=== PATIENT | female | born 1995 | race Caucasian/White ===

== ENCOUNTER → 2016-06-12 | Outpatient (CLI) | payer OTHER ==
--- NOTE | 2016-06-13 13:30 | US ---
EXAMINATION TYPE: US OB >= 14 wk fetus DATE OF EXAM: 06/12/2016 4:59 PM COMPARISON: None CLINICAL HISTORY: O36.63X0 Large for dates TECHNIQUE: GESTATIONAL AGE / DATING Physician Established: (35 weeks/0 days) EDC: 07/17/2016 Dates by LMP: (35 weeks/0 days) EDC: 07/17/2016 Dates by First Scan: (35 weeks/0 days) EDC: 07/17/2016 Dates by Current Scan: (35 weeks/3 days) EDC: 07/14/2016 SURVEY IUP: Single PLACENTA: Posterior PREVIA: No Previa STUART: 14.4 cm Normal CERVICAL LENGTH (transabdominal: norm > 3.0cm): 3.7 cm BIOMETRY PRESENTATION: Vertex BPD: 8.8 cm 35 weeks / 5 days HC: 31.7 cm 35 weeks / 5 days AC: 31.8 cm 35 weeks / 5 days FL: 7.0 cm 36 weeks / 0 days ESTIMATED WEIGHT IN GRAMS: 2775 grams ESTIMATED WEIGHT IN LBS/OZS: 6 lbs. 2 oz. WEIGHT PERCENTAGE BASED ON ESTABLISHED DATES: 70.7% HC/AC: 1.0 Normal FL/AC: 22.1 Normal HEART RATE: 134 bpm RHYTHM: Normal TECHNOLOGIST IMPRESSION: growth according to dates IMPRESSION: 1. Single intrauterine gestation estimated at 35 weeks 3 days gestation. Cardiac activity measures 13 4 bpm. Estimated date of confinement is calculated to be 07/14/2016 based on current measurements.
== END | disposition home or self-care (01) ==
LOC: RADUSWWP 16:08
PROVIDERS: ATTEND Obstetrics & Gynecology
DX: O36.63X0 Maternal care for excessive fetal growth, third trimester, not applicable or unspecified (principal); Z3A.35 35 weeks gestation of pregnancy
CPT/HCPCS: 76805

== ENCOUNTER 2016-06-25 10:43 | Outpatient (CLI) | payer OTHER | END 2016-06-25 11:19 | disposition home or self-care (01) | LOC: FBPOP 10:43 | PROVIDERS: ATTEND Obstetrics & Gynecology | DX: O99.89 Other specified diseases and conditions complicating pregnancy, childbirth and the puerperium (principal); M32.9 Systemic lupus erythematosus, unspecified; Z3A.38 38 weeks gestation of pregnancy | CPT/HCPCS: 96372; G0463; 99213 ==

== ENCOUNTER 2016-06-28 14:15 | Outpatient (CLI) | payer OTHER ==
--- NOTE | 2016-06-28 17:28 | P.PN ---
Progress Note - Text Izzy is seen and evaluated in triage. Her NST is reactive and she is overall feeling well. We had a lengthy discussion on her past medical history which includes rheumatoid arthritis and lupus. We discussed these her high risk conditions that require closer monitoring as she is been negligent getting all of her NSTs. She did see high risk and this was all explained her at the beginning of the . She was supposed to be taking aspirin has not been. On exam today she was dilated to 1 cm 70% effaced cervix was otherwise firm and the baby was high. I do not feel present part therefore ultrasound was done and verifies breech presentation at this time. Grossly amniotic fluid volume is normal but a full ultrasound for this is pending. After lengthy discussion with the patient on treatment plan we did discuss the preference of getting her delivered prior to her due date due to her increased risk of blood clots that could affect both her and were the placenta and baby. She seems to now have a better understanding of what our concerns are. She will have a nonstress test on Sunday. We'll plan to schedule a section for breech presentation on Sunday or Sunday of next week and do an evaluation prior to that verified that is still breech. Should the baby turn we'll plan to induce the patient instead. All these questions are answered for her and again was made very clear to her what her risks are should she have a problem moving forward with her lupus in the including hypertensive issues as well as blood clot issues the resulting in DVT, pulmonary embolism, or .
--- NOTE | 2016-06-28 17:54 | US ---
EXAMINATION TYPE: US OB >= 14 wk fetus DATE OF EXAM: 06/28/2016 5:44 PM COMPARISON: Prior in PACS CLINICAL HISTORY: Estimated weight and position, and STUART TECHNIQUE: Transabdominal (TA) GESTATIONAL AGE / DATING Physician Established: (37 weeks/2 days) EDC: 07/17/2016 Dates by LMP: : (37 weeks/2 days) EDC: 07/17/2016 Dates by First Scan: (37 weeks/2 days) EDC: 07/17/2016 Dates by Current Scan: (36 weeks/4 days) EDC: 07/22/2016 SURVEY IUP: Single PLACENTA: Posterior PREVIA: No Previa STUART: 11.1 cm Normal CERVICAL LENGTH (transabdominal: norm > 3.0cm): 3.5 cm BIOMETRY PRESENTATION: Breech LIE: Longitudinal BPD: 9.0 cm 36 weeks / 4 days HC: 32.8 cm 37 weeks / 2 days AC: 32.9 cm 36 weeks / 6 days FL: 7.1 cm 36 weeks / 5 days ESTIMATED WEIGHT IN GRAMS: 3038 grams ESTIMATED WEIGHT IN LBS/OZS: 6 lbs. 11 oz. WEIGHT PERCENTAGE BASED ON ESTABLISHED DATES: 44.9% HC/AC: 1.0 Normal FL/AC: 21.76 Normal HEART RATE: 128 bpm RHYTHM: Normal MATERNAL WALL MEASUREMENT: cm from skin to anterior uterine wall (if exam limited due to body habitus ). TECHNOLOGIST IMPRESSION: Viable IUP, measurements congruent with dates IMPRESSION: There is satisfactory growth compared to the first exam of 12/24/2015. I see no complication pro cess. There is a breech lie.
== END 2016-06-28 17:37 | disposition home or self-care (01) ==
LOC: FBPOP 14:15
PROVIDERS: ATTEND Obstetrics & Gynecology
DX: O99.89 Other specified diseases and conditions complicating pregnancy, childbirth and the puerperium (principal); M32.9 Systemic lupus erythematosus, unspecified; M06.9 Rheumatoid arthritis, unspecified; O32.1XX0 Maternal care for breech presentation, not applicable or unspecified; Z3A.37 37 weeks gestation of pregnancy
CPT/HCPCS: 59025; 76805; G0463; 99213

== ENCOUNTER 2016-07-05 06:37 | Inpatient (IN) | payer OTHER ==
[2016-07-05] MEDS ORDERED: METHYLERGONOVINE 0.2 MG/ML 1 ML AMP IM PRN (06:49)
[2016-07-05] MEDS ORDERED: CARBOPROST TROMETHAMINE 250 MCG/ML 1 ML AMP IM PRN (06:49)
[2016-07-05] MEDS ORDERED: OXYTOCIN 10 UNIT/ML 1 ML VIAL IM PRN (06:49)
[2016-07-05] MEDS ORDERED: TERBUTALINE 1 MG/ML VIAL SQ PRN (06:49)
[2016-07-05] MEDS ORDERED: LIDOCAINE 1% (PF) 10 MG/ML (30 ML SDV) SQ PRN (06:49)
[2016-07-05] MEDS ORDERED: CLINDAMYCIN 900 MG in DEXTROSE 5% IN WATER 50 ML IVPB STA ×2 (06:49)
[2016-07-05] MEDS ORDERED: OXYTOCIN 30 UNITS/500 ML NS 30 UNIT in SALINE 1 500ML.BAG IV SCH ×2 (07:00→23:00)
[2016-07-05 07:03] LABS: Basophils % (A) 0 %; CH 27.6; CHCM 34.2; Eosinophils # (A) 0.1 k/uL (0-0.7); Eosinophils % (A) 1 %; HDW 3.09; HGB 12.1 gm/dL (11.4-16.0); Luc # (Auto) 0.18; Luc % (Auto) 2; Lymphocytes % (A) 17 %; MCH 27.1 pg (25.0-35.0); MCHC 33.5 g/dL (31.0-37.0); MCV 81.1 fL (80.0-100.0); Mean Platelet Volume 7.2; Monocytes # (A) 0.6 k/uL (0-1.0); Monocytes % (A) 5 %; Neutrophils # (A) 8.6 k/uL (1.3-7.7); Neutrophils % (A) 75 %; RBC 4.44 m/uL (3.80-5.40); RDW 14.2 % (11.5-15.5); WBC 11.5 k/uL (3.8-10.6)
[2016-07-05] MEDS: LACTATED RINGERS 1,000 ML IV SCH ×4 (07:21→20:06)
[2016-07-05 07:42] VITALS: RESP 16
[2016-07-05] MEDS ORDERED: BUTORPHANOL 1 MG/ML 1 ML VIAL IV PRN (09:41)
[2016-07-05] MEDS ORDERED: BUPIVACAINE (PF) 0.25% 30 ML VIAL ONE (14:54)
[2016-07-05] MEDS ORDERED: SODIUM CHLORIDE 0.9% 100 ML BAG ONE (14:54)
[2016-07-05] MEDS ORDERED: fentaNYL (PF) 50 MCG/ML 5 ML AMP ONE (14:54)
[2016-07-05] MEDS: CLINDAMYCIN 900 MG in DEXTROSE 5% IN WATER 50 ML IVPB SCH ×2 (15:28)
[2016-07-05] MEDS ORDERED: ACETAMINOPHEN TAB 325 MG TAB PO PRN (22:46)
[2016-07-05] MEDS ORDERED: WITCH HAZEL 1 EACH MED..PAD TOPICAL PRN (22:46)
[2016-07-05] MEDS ORDERED: diphenhydrAMINE 25 MG CAP PO PRN (22:46)
[2016-07-05] MEDS ORDERED: LANOLIN CREAM 5 GM TUBE TOPICAL PRN (22:46)
[2016-07-05] MEDS ORDERED: BENZOCAINE/MENTHOL SPRAY 1 GM/SPRAY AEROSOL TOPICAL PRN (22:46)
[2016-07-05] MEDS ORDERED: diphenhydrAMINE ELIXIR 25 MG/10 ML CUP PO PRN (22:46)
[2016-07-05] MEDS ORDERED: HYDROCORTISONE 2.5% RECTAL CREAM 30 GM TUBE RECTAL PRN (22:46)
[2016-07-05] MEDS ORDERED: diphenhydrAMINE 50 MG/ML 1 ML VIAL IVP PRN ×2 (22:46)
[2016-07-05] MEDS ORDERED: Acetaminophen-Codeine 300-30mg TAB PO PRN (22:46)
[2016-07-05] MEDS ORDERED: ZOLPIDEM 5 MG TAB PO PRN (22:46)
[2016-07-05] MEDS ORDERED: diphenhydrAMINE 50 MG CAP PO PRN (22:46)
[2016-07-05] MEDS ORDERED: SIMETHICONE 80 MG CHEWABLE PO PRN (22:46)
--- NOTE | 2016-07-05 22:52 | P.HPOB ---
History of Present Illness H&P Date: 07/05/16 Chief Complaint: Intrauterine at 39 weeks induction of labor Izzy is a 21-year-old at 39 weeks gestation who is being induced for history of lupus. Her medical history is, K by both rheumatoid arthritis any recent lupus diagnosis. Initially she was scheduled to see high risk but after 1 or 2 visits she stopped going. She was noncompliant with much of her care she missed multiple appointments and up until last 2 weeks had missed appointments and had not been getting nonstress tests. Over the last 2 weeks following me having to call her and have her come to the hospital on the weekend have a nonstress test she is followed up more appropriately. Due to her history of lupus my concern over the baby and potential problems following delivery we are doing an elective induction of labor. She was dilated to 1 cm 70% effaced artificial rupture membranes was performed and clear fluid is noted heart tones were in the 120s and reactive. During she was taking Plaquenil and she did take some prednisone she did stop them early in the however. She was supposed to be taking an aspirin every day but she decided that she did not think that was safe despite high risk instructions. Her pertinent labs do include O+ blood type Rh antibody was negative. Rubella was immune, hep Celine surface antigen and RPR were all negative. GBS was positive. On physical exam her vital signs are stable and afebrile. Heart regular, lungs clear, extremities without pain. Gravid uterus is noted. heart tones in again were in the 120s and reactive. Should be noted that during the course of the induction there was a baseline change to baseline of 90-95 but the heart tones remained reactive with accelerations in the 1 teens. This lasted for a little less than hour and spontaneously returned back to a baseline in the 1 teens where it remained for most of the remainder of the induction. Past Medical History Past Medical History: Rheumatoid Arthritis (RA), Thyroid Disorder Additional Past Medical History / Comment(s): Lupus. patient states hypothryoid , but has not been treated in a long time History of Any Multi-Drug Resistant Organisms: None Reported Past Surgical History: Appendectomy Additional Past Surgical History / Comment(s): Removal of a lump on the left side of the neck Past Anesthesia/Blood Transfusion Reactions: No Reported Reaction Past Psychological History: Anxiety Smoking Status: Never smoker - Past Family History Mother Additional Family Medical History / Comment(s): Multiple Sclerosis Medications and Allergies Home Medications Medication Instructions Recorded Confirmed Type Hydroxychloroquine Sulfate 200 mg PO DAILY 04/29/14 07/05/16 History [Plaquenil] Pfs-Oiif-Qefcr Acid 1 tab PO DAILY 04/29/14 07/05/16 History [-U Capsule] Ascorbic Acid [Vitamin C] 500 mg PO DAILY 03/10/15 07/05/16 History Cholecalciferol [Vitamin D3] 1,000 unit PO DAILY 03/10/15 07/05/16 History Folic Acid 1 mg PO DAILY 03/10/15 07/05/16 History traMADol HCL [Ultram] 50 mg PO DIRECTED PRN 07/05/16 07/05/16 History Allergies Allergy/AdvReac Type Severity Reaction Status Date / Time Penicillins Allergy Rash/Hives Verified 06/28/16 15:00 Exam Osteopathic Statement: *. No significant issues noted on an osteopathic structural exam other than those noted in the History and Physical/Consult. - Vital Signs Vital signs: Vital Signs Temp Pulse Resp BP 07/05/16 06:46 96.2 F L 90 16 96/51 Intake and Output 07/05/16 07/05/16 07/05/16 06:59 14:59 22:59 Intake Total 1000 Balance 1000 Intake: IV 1000 Lactated Ringers 1,000 ml 1000 @ 125 mls/hr IV .Q8H [facility] Rx#:[id number] Other: Weight 72.121 kg Results Result Diagrams: 07/05/16 06:55 Abnormal Lab Results - Last 24 Hours (Table) 07/05/16 Range/Units 06:55 WBC 11.5 H (3.8-10.6) k/uL Neutrophils # 8.6 H (1.3-7.7) k/uL
--- NOTE | 2016-07-05 22:53 | P.PROBDLV ---
Vaginal Delivery Note - . Vaginal Delivery Note: Patient progressed to complete and pushing with spontaneous vaginal delivery of a viable male over an intact perineum. Falling deliver the head a nuchal cord 1 was reduced anterior posterior shoulders delivered gentle downward upper traction followed by the remainder the baby. Mouth nares were then bulb suctioned and baby was placed on mother's abdomen where the umbilical cord was clamped cut usual fashion. Placenta was then delivered intact and Pitocin was added to the IV. scores and weight are both pending. Both mother and baby however appear stable.
[2016-07-06] MEDS: CLINDAMYCIN 900 MG in DEXTROSE 5% IN WATER 50 ML IVPB SCH ×2 (00:26)
[2016-07-06] MEDS: SENNOSIDES-DOCUSATE SODIUM 1 EACH TAB PO SCH ×2 (08:02→20:38)
[2016-07-06] MEDS: SENNA LEAF EXTRACT SYRUP 528 MG/15 ML CUP PO SCH ×2 (08:33→20:40)
--- NOTE | 2016-07-06 09:26 | P.PNOBGVD ---
Subjective - Subjective Principal diagnosis: day 1 Interval history: Overall choice doing very well. She is ambulating, voiding, and tolerating her diet. She voices no complaints. Vital signs are stable and she is afebrile. Patient reports: Reports appetite normal, Reports voiding normally, Reports pain well controlled, Reports ambulating normally [employer]: doing well Objective - Latest Vital Signs Latest vital signs: Vital Signs Temp Pulse Resp BP 07/06/16 08:00 98.7 F 83 16 118/77 07/06/16 04:00 97.8 F 72 16 112/55 07/06/16 00:51 96.3 F L 94 16 103/58 07/06/16 00:18 96 16 97/55 07/05/16 23:49 96 16 118/56 07/05/16 23:34 141 H 16 121/60 07/05/16 23:19 81 16 121/52 07/05/16 23:04 96.4 F L 100 16 116/53 07/05/16 22:51 101 H 16 117/44 Intake and Output 07/05/16 07/06/16 07/06/16 22:59 06:59 14:59 Intake Total 1000 Balance 1000 Intake: IV 1000 Lactated Ringers 1,000 ml 1000 @ 125 mls/hr IV .Q8H [facility] Rx#:[id number] Other: # Voids 1 - Exam Lungs: bilateral: normal Chest: Normal S1, Normal S2 Extremities: Present: normal Abdomen: Present: normal appearance, soft Uterus: Present: normal, firm
[2016-07-06] MEDS: IBUPROFEN 600 MG TAB PO PRN ×2 (11:54→20:28)
[2016-07-06] MEDS: Acetaminophen-Codeine 300-30mg TAB PO PRN (23:44)
[2016-07-07] MEDS: IBUPROFEN 600 MG TAB PO PRN ×2 (05:34→12:51)
--- NOTE | 2016-07-07 08:16 | P.DS ---
Providers Date of admission: 07/05/16 06:37 Expected date of discharge: 07/07/16 Attending physician: Denzel Anderson Primary care physician: Stated None Hospital Course: Izzy is doing very well day 2. She is ambulating, voiding, and she is tolerating her diet. She voices no complaints. Her vital signs are stable and afebrile. Heart regular, lungs clear, extremities without pain. Her abdomen is soft her uterus firm and lochia is reported to be light. She requests nothing to go home for pain. Prescription for breast pump is however provided. Discharge instructions thoroughly reviewed and all questions are answered for her prior to discharge and she is again stable for discharge this time. Patient Condition at Discharge: Good Plan - Discharge Summary Discharge Medication List Hydroxychloroquine Sulfate [Plaquenil] 200 mg PO DAILY 04/29/14 [History] Tzo-Gsut-Ephve Acid [-U Capsule] 1 tab PO DAILY 04/29/14 [ History] Ascorbic Acid [Vitamin C] 500 mg PO DAILY 03/10/15 [History] Cholecalciferol [Vitamin D3] 1,000 unit PO DAILY 03/10/15 [History] Folic Acid 1 mg PO DAILY 03/10/15 [History] traMADol HCL [Ultram] 50 mg PO DIRECTED PRN 07/05/16 [History] Follow up Appointment(s)/Referral(s): Denzel Anderson DO [Doctor of Osteopathic Medicine] - 6 Weeks Activity/Diet/Wound Care/Special Instructions: No heavy lifting, limit stairs and driving and pelvic rest. If any high temperatures, heavy bleeding, or severe pain call my office Discharge Disposition: HOME SELF-CARE
[2016-07-07 08:42] VITALS: BP 106/62; PULSE 73; TEMP 98
[2016-07-07] MEDS: SENNOSIDES-DOCUSATE SODIUM 1 EACH TAB PO SCH (08:43)
[2016-07-07] MEDS: Acetaminophen-Codeine 300-30mg TAB PO PRN (08:48)
[2016-07-07] MEDS: SENNA LEAF EXTRACT SYRUP 528 MG/15 ML CUP PO SCH (10:17)
== END 2016-07-07 13:20 | disposition home or self-care (01) | DRG 775 ==
LOC: 4FBP 06:37
PROVIDERS: ADMIT Obstetrics & Gynecology; ATTEND Obstetrics & Gynecology
PROC: 10E0XZZ Delivery of Products of Conception, External Approach (ICD-10-PCS; principal; 2016-07-05)
PROC: 10907ZC Drainage of Amniotic Fluid, Therapeutic from Products of Conception, Via Natural or Artificial Opening (ICD-10-PCS; 2016-07-05)
PROC: 3E033VJ Introduction of Other Hormone into Peripheral Vein, Percutaneous Approach (ICD-10-PCS; 2016-07-05)
PROC: 3E0S3NZ Introduction of Analgesics, Hypnotics, Sedatives into Epidural Space, Percutaneous Approach (ICD-10-PCS; 2016-07-05)
DX: O99.12 Other diseases of the blood and blood-forming organs and certain disorders involving the immune mechanism complicating childbirth (principal); M32.9 Systemic lupus erythematosus, unspecified; O99.344 Other mental disorders complicating childbirth; O69.81X0 Labor and delivery complicated by cord around neck, without compression, not applicable or unspecified; O99.824 Streptococcus B carrier state complicating childbirth; M06.9 Rheumatoid arthritis, unspecified; T39.016A Underdosing of aspirin, initial encounter; E03.9 Hypothyroidism, unspecified; O99.284 Endocrine, nutritional and metabolic diseases complicating childbirth; F41.9 Anxiety disorder, unspecified; Z3A.39 39 weeks gestation of pregnancy; Z37.0 Single live birth; Z88.0 Allergy status to penicillin; Z79.899 Other long term (current) drug therapy; Z79.891 Long term (current) use of opiate analgesic; Z82.0 Family history of epilepsy and other diseases of the nervous system; Z90.49 Acquired absence of other specified parts of digestive tract; Z91.128 Patient's intentional underdosing of medication regimen for other reason; Z91.19 Patient's noncompliance with other medical treatment and regimen
CPT/HCPCS: 85025; 88307

== ENCOUNTER 2019-06-18 09:40 | Emergency (ER) | payer OTHER ==
[2019-06-18 09:55] VITALS: RESP 18; TEMP 98.2
[2019-06-18] MEDS ORDERED: KETOROLAC 60 MG/2 ML VIAL IM STA (10:10)
[2019-06-18] MEDS ORDERED: methylPREDNISolone SOD SUCCI 125 MG/2 ML VIAL IM ONE (10:10)
--- NOTE | 2019-06-18 10:16 | ED ---
Lower Extremity Injury HPI - General Chief Complaint: Extremity Injury, Lower Stated Complaint: hip pain Time Seen by Provider: 06/18/19 10:01 Source: patient Mode of arrival: wheelchair Limitations: no limitations - History of Present Illness Initial Comments: Patient is a 24-year-old female, with past medical history of lupus and rheumatoid arthritis, presenting with left hip pain since yesterday. Patient states she sometimes has flareups and certain joints however does not typically this bad. She denies any falls or trauma to her left hip. She states she feels like it is locked in place and having sharp shooting pains in the lateral aspect. She does take ibuprofen and prednisone as needed for flareups. Patient states she has been taking about 5 mg of prednisone the last few days without improvement. Patient does see a drapery seamstress at [facility]. She denies fever, chills, nausea, vomiting, abdominal pain. She has no other complaints at this time. Upon arrival to ER, her vital signs are stable. - Related Data Home Medications Medication Instructions Recorded Confirmed Hydroxychloroquine Sulfate 200 mg PO DAILY 04/29/14 07/05/16 [Plaquenil] Ldx-Jvln-Nnhgs Acid 1 tab PO DAILY 04/29/14 07/05/16 [-U Capsule (formulary)] Ascorbic Acid [Vitamin C] 500 mg PO DAILY 03/10/15 07/05/16 Cholecalciferol [Vitamin D3 (25 1,000 unit PO DAILY 03/10/15 07/05/16 Mcg = 1000 Iu)] Folic Acid 1 mg PO DAILY 03/10/15 07/05/16 traMADol HCL [Ultram] 50 mg PO DIRECTED PRN 07/05/16 07/05/16 Allergies Allergy/AdvReac Type Severity Reaction Status Date / Time Penicillins Allergy Rash/Hives Verified 06/18/19 09:55 Review of Systems ROS Statement: Those systems with pertinent positive or pertinent negative responses have been documented in the HPI. ROS Other: All systems not noted in ROS Statement are negative. Past Medical History Past Medical History: Rheumatoid Arthritis (RA), Thyroid Disorder Additional Past Medical History / Comment(s): Lupus. patient states hypothryoid, but has not been treated in a long time History of Any Multi-Drug Resistant Organisms: None Reported Past Surgical History: Appendectomy Additional Past Surgical History / Comment(s): Removal of a lump on the left side of the neck Past Anesthesia/Blood Transfusion Reactions: No Reported Reaction Past Psychological History: Anxiety Smoking Status: Never smoker - Past Family History Mother Additional Family Medical History / Comment(s): Multiple Sclerosis General Exam - General Exam Comments Initial Comments: GENERAL: Well-appearing, well-nourished and in no acute distress. HEAD: Atraumatic, normocephalic. EYES: Pupils equal round and reactive to light, extraocular movements intact, sclera anicteric, conjunctiva are normal. ENT: TMs normal, nares patent, oropharynx clear without exudates. Moist mucous membranes. NECK: Normal range of motion, supple without lymphadenopathy or JVD. LUNGS: Breath sounds clear to auscultation bilaterally and equal. No wheezes rales or rhonchi. HEART: Regular rate and rhythm without murmurs, rubs or gallops. ABDOMEN: Soft, nontender, normoactive bowel sounds. No guarding, no rebound. No masses appreciated. : Deferred EXTREMITIES: Pain with palpation of the lateral aspect of the left hip. Very limited range of motion secondary to pain. Painful ambulation. Strength was not tested of the hip secondary to pain. Neurovascular intact. Sensation is equal in bilateral lower extremities. No pitting or edema. PSYCH: Normal mood, normal affect. SKIN: Warm, Dry, normal turgor, no rashes or lesions noted. Limitations: no limitations Course Vital Signs 06/18/19 09:54 Temperature 98.2 F Pulse Rate 71 Respiratory 18 Rate Blood Pressure 104/70 O2 Sat by Pulse 99 Oximetry Medical Decision Making - Medical Decision Making Patient is a 24-year-old female presenting with left hip pain that is increasing since yesterday. She has history of rheumatoid arthritis and lupus. X-rays reveal no acute fracture dislocation. There is severe left femoral acetabluar arthropathy with near [id number] articulation of the femur. Patient was given steroids and Toradol today. She'll be given referral to an orthopedic and will follow up with her drapery seamstress. Patient is agreement with this plan of care. We discussed limiting use of steroids with and anti-inflammatories at same time. Return parameters were discussed with the patient she verbalized understanding. Patient will receive a disc of her x-rays to take with her. - Lab Data Lab Results 02/05/20 02/05/20 Range/Units 10:55 10:55 Urine Color Yellow Urine Appearance Clear (Clear) Urine pH 5.5 (5.0-8.0) Ur Specific [place] 1.034 (1.001-1.035) Urine Protein Trace H (Negative) Urine Glucose (UA) Negative (Negative) Urine Ketones Negative (Negative) Urine Blood Negative (Negative) Urine Nitrite Negative (Negative) Urine Bilirubin Negative (Negative) Urine Urobilinogen 2.0 (<2.0) mg/dL Ur Leukocyte Esterase Moderate H (Negative) Urine RBC 1 (0-5) /hpf Urine WBC 4 (0-5) /hpf Ur Squamous Epith Cells 4 (0-4) /hpf Urine Mucus Rare H (None) /hpf Urine HCG, Qual Not Detected (Not Detectd) Disposition Clinical Impression: Left hip pain Disposition: HOME SELF-CARE Condition: Stable Instructions (If sedation given, give patient instructions): Hip Pain (ED) Additional Instructions: Please return to the Emergency Department if symptoms worsen or any other concerns. Follow up with orthopedic as discussed. Do not use steroids and anti-inflammatories together. Follow up with drapery seamstress as well. Is patient prescribed a controlled substance at d/c from ED?: No Referrals: Mejia Escalera MD [Primary Care Provider] - 1-2 days Redd Dawkins PAC [PHYSICIAN PRODUCT DEVELOPMENT ASSISTANT] - 1-2 days
[2019-06-18 11:18] LABS: Appearance,Urine Clear (Clear); Bilirubin,Urine Negative (Negative); Blood,Urine Negative (Negative); Color,Urine Yellow; Glucose,Urine (UA) Negative (Negative); Ketones,Urine Negative (Negative); Leukocyte Esterase,Urine Moderate (Negative); Mucus,Urine Rare /hpf; Nitrite,Urine Negative (Negative); PH, Urine 5.5 (5.0-8.0); Protein,Urine Trace (Negative); RBC,Urine 1 /hpf (0-5); Specific Gravity,Urine 1.034 (1.001-1.035); Squamous Epithelial Cell,Urine 4 /hpf (0-4); WBC,Urine 4 /hpf (0-5)
--- NOTE | 2019-06-18 11:47 | XR ---
EXAMINATION TYPE: XR Hip Complete LT DATE OF EXAM: 06/18/2019 CLINICAL HISTORY: 2 views of the left hip TECHNIQUE: AP and frogleg views of the left hip are obtained. COMPARISON: None. FINDINGS: There is no acute fracture/dislocation evident in the left hip. The joint space in the le ft hip appears severely narrowed with near [id number] articulation and opposing surface sclerosis. Subchondral cysts are seen. The overlying soft tissue appears unremarkable. IMPRESSION: There is no acute fracture or dislocation in the left hip. Severe left femoral acetabula r arthropathy with near [id number] articulation of the femur with the acetabular roof.
[2019-06-18 12:15] VITALS: BP 98/56; PULSE 74
== END 2019-06-18 12:13 | disposition home or self-care (01) ==
LOC: EC 09:40 → SUPCPDRO 09:40 → EC 12:13
DX: M16.12 Unilateral primary osteoarthritis, left hip (principal); M06.9 Rheumatoid arthritis, unspecified; E03.9 Hypothyroidism, unspecified; Z88.0 Allergy status to penicillin; Z79.899 Other long term (current) drug therapy
CPT/HCPCS: 81001; 81025; 73502; 99283; 96372 ×2; J2930; J1885

== ENCOUNTER → 2020-08-02 | Outpatient (CLI) | payer OTHER ==
[2020-08-02 17:03] LABS: Appearance,Urine Clear (Clear); Bacteria,Urine Rare /hpf; Bilirubin,Urine Negative (Negative); Blood,Urine Negative (Negative); Color,Urine Light Yellow; Glucose,Urine (UA) Negative (Negative); Ketones,Urine Negative (Negative); Leukocyte Esterase,Urine Moderate (Negative); Mucus,Urine Rare /hpf; Nitrite,Urine Negative (Negative); Protein,Urine Negative (Negative); Specific Gravity,Urine 1.015 (1.001-1.035); Squamous Epithelial Cell,Urine 2 /hpf (0-4); Urobilinogen,Urine <2.0 mg/dL (<2.0); WBC,Urine 10 /hpf (0-5)
[2020-08-02 17:05] LABS: INR 0.9 (<1.2); Partial Thromboplastin Time 24.4 sec (22.0-30.0)
[2020-08-02 17:14] LABS: ALT 12 U/L (4-34); AST 20 U/L (14-36); African American GFR (CKD) >90 (>60 ml/min/1.73 sqM); Albumin 4.8 g/dL (3.5-5.0); Alkaline Phosphatase 101 U/L (38-126); Anion Gap 12 mmol/L; Blood Urea Nitrogen 12 mg/dL (7-17); Calcium 10.1 mg/dL (8.4-10.2); Carbon Dioxide 25 mmol/L (22-30); Chloride 102 mmol/L (98-107); Glucose 90 mg/dL (74-99); Non-African American GFR(CKD) >90 (>60 ml/min/1.73 sqM); Potassium 4.2 mmol/L (3.5-5.1); Sodium 139 mmol/L (137-145); Total Bilirubin 0.3 mg/dL (0.2-1.3); Total Protein 8.5 g/dL (6.3-8.2)
[2020-08-02 18:16] LABS: HCT 32.1 % (34.0-46.0); HGB 11.3 gm/dL (11.4-16.0); Hypochromasia Slight; MCH 26.7 pg (25.0-35.0); MCHC 35.2 g/dL (31.0-37.0); MCV 75.9 fL (80.0-100.0); Mean Platelet Volume 7.2; Microcytosis Slight; Platelet Count 448 k/uL (150-450); RBC 4.24 m/uL (3.80-5.40); RDW 14.8 % (11.5-15.5); WBC 10.3 k/uL (3.8-10.6)
== END | disposition home or self-care (01) ==
LOC: LABPAT 16:13
PROVIDERS: ATTEND Orthopaedic Surgery
DX: Z01.818 Encounter for other preprocedural examination (principal); Z01.812 Encounter for preprocedural laboratory examination
CPT/HCPCS: 80053; 81001; 85027; 85610; 85730; 86850; 86900; 86901; 87070; 93005

== ENCOUNTER 2020-08-10 05:51 | Day surgery (SDC) | payer OTHER ==
[2020-08-06 14:47] VITALS: BMI 27.9
[~2020-08-10 05:51] MED LIST: ACETAMINOPHEN TAB 500 MG TAB PO PRN; DEXAMETHASONE SOD PHOSPHATE 4 MG/ML 1 ML VIAL IV ONE; GABAPENTIN 300 MG CAP PO PRN; LACTATED RINGERS 1,000 ML IV SCH; LIDOCAINE 1% (10MG/ML) FOR IV START INTRADERMA PRN; MELOXICAM 7.5 MG TAB PO PRN; MIDAZOLAM 2 MG/2 ML VIAL IV PRN; ROPIVACAINE 246.25 MG, EPINEPHrine 0.5 MG, KETOROLAC 30 MG, cloNIDine HCL/PF 80 MCG, WA... MISCELLANE PRN; TRANEXAMIC ACID 1,000 MG in SODIUM CHLORIDE 0.9% 100 ML IVPB PRN
[2020-08-10] MEDS ORDERED: LACTATED RINGERS 1,000 ML IV ONE ×3 (06:21→08:24)
[2020-08-10] MEDS: ONDANSETRON 4 MG/2 ML VIAL IVP ONE ×2 (06:22→09:05)
[2020-08-10 06:29] LABS: Glucose,Whole Blood 88 mg/dL (75-99)
[2020-08-10] MEDS ORDERED: MIDAZOLAM 2 MG/2 ML VIAL ONE (06:55)
[2020-08-10] MEDS ORDERED: NEOSTIGMINE 1 MG/ML 10 ML VIAL ONE (06:55)
[2020-08-10] MEDS ORDERED: SODIUM CHLORIDE 0.9% 100 ML BAG ONE (06:55)
[2020-08-10] MEDS ORDERED: GLYCOPYRROLATE 0.2 MG/ML 2 ML VIAL ONE (06:55)
[2020-08-10] MEDS ORDERED: ROCURONIUM 10 MG/ML (5 ML VIAL) IV ONE (06:55)
[2020-08-10] MEDS ORDERED: LIDOCAINE 1% INJ 10MG/ML (20 ML MDV) ONE (06:55)
[2020-08-10] MEDS ORDERED: PROPOFOL 10 MG/ML 20 ML VIAL IV ONE (06:55)
[2020-08-10] MEDS ORDERED: fentaNYL (PF) 50 MCG/ML 2 ML AMP ONE (06:55)
[2020-08-10] MEDS ORDERED: TRANEXAMIC ACID 1,000 MG/10 ML VIAL ONE (06:55)
[2020-08-10] MEDS ORDERED: HYDROmorphone (PF) 1 MG/ML ONE (06:55)
[2020-08-10] MEDS ORDERED: SUCCINYLCHOLINE CHLORIDE 100 MG/5 ML SYR IV ONE (06:55)
[2020-08-10] MEDS ORDERED: ONDANSETRON 4 MG/2 ML VIAL IVP PRN (07:03)
[2020-08-10] MEDS ORDERED: HYDROmorphone 0.5 MG/0.5 ML SYRINGE IVP PRN (07:03)
[2020-08-10] MEDS ORDERED: HYDROmorphone 0.2 MG/1 ML SYRINGE IVP PRN (07:03)
[2020-08-10] MEDS ORDERED: NALOXONE 0.4 MG/ML 1 ML VIAL IV PRN (07:03)
[2020-08-10] MEDS ORDERED: HYDROmorphone 1 MG/ML 1 ML SYRINGE IVP PRN (07:03)
[2020-08-10] MEDS ORDERED: HYDROcodone/APAP 7.5-325MG 1 EACH TAB PO PRN ×2 (07:05)
[2020-08-10] MEDS ORDERED: SODIUM CHLORIDE 0.9% 1,000 ML IV SCH (07:15)
[2020-08-10] MEDS ORDERED: ceFAZolin 3,000 MG in SODIUM CHLORIDE 0.9% IRRIGATIO 3,000 ML IRRIGATION ONE (07:28)
--- NOTE | 2020-08-10 08:47 | P.OP ---
Date of Procedure: 08/10/20 Preoperative Diagnosis: Severe osteoarthritis left hip Postoperative Diagnosis: Severe osteoarthritis left hip Procedure(s) Performed: Left total hip arthroplasty with a direct anterior approach Implants: [employer] Polarstem standard size 2 [employer] R3, 3 hole hemispherical acetabular shell, 48 mm [employer] Reflection 6.5 mm cancellus screw, 20 mm 2 [employer] R3, XLPE 20 acetabular liner [employer] Oxinium femoral head 32 m, +0 All components were press-fit. The articulation is Oxinium on polyethylene. Anesthesia: GETA Surgeon: Galo Gomez Supervisor Cabinetmaker #1: Leanne Preez Estimated Blood Loss (ml): 200 Pathology: other (Femoral head) Condition: stable Disposition: PACU Indications for Procedure: After failure of conservative treatment we discussed the surgical and nonsurgical treatment options at length. Patient wishes to proceed with a total hip arthroplasty with a direct anterior approach. Complications specific to this procedure were discussed at length, including but not limited to infection, leg length discrepancy, dislocation, nerve injury, and fracture. Covid-19 was also discussed at length with the patient, and they are aware of the current policies and procedures. The patient was given the option of delaying surgery, but they elect to proceed knowing these risks. Patient is aware of all these complications and informed consent was obtained Operative Findings: The operative findings are consistent with severe osteoarthritis of the left hip Description of Procedure: Patient was seen and evaluated in the preoperative area and the consent was reviewed. The operative site was marked with a skin marker. The patient was then brought to the operating room and given preoperative antibiotics intr avenously. 1 g of Tranexamic acid was also given intravenously. A general anesthetic was administered by the anesthesia department. The patient was then placed on the [place] table with the bony prominences well-padded. The hip area was then prepped with a ChloraPrep solution and draped in the usual sterile fashion. A universal timeout was then performed, which confirmed the patient's name, roxane gical site, ALLERGIES, and procedure being performed on the consent. Next the incision site was located at 1 cm distal to the anterior superior iliac spine along the flexion crease of the left hip. The skin and subcutaneous tissues were sharply incised. Incision was carefully dissected down to the fascia overlying the tensor fascia kj muscle. This fascia was then incised in line with the incision. Care was taken to stay laterally in order to avoid injuring the lateral femoral cutaneous nerve. Next, using blunt finger dissection, the tensor fascia kj muscle was dissected off its investing fascia. The muscle was then carefully retracted laterally with a cobra retractor over the lateral neck of the femur. Next, the circumflex vessels were identified and cauterized using the AquaMantis device. The anterior hip capsule was then exposed. The capsule was then opened and an inverted T fashion. Cobra retractors were then placed intracapsularly. The retractors were maintained intracapsular throughout the procedure. The proximal femur was then visualized. A small amount of traction was placed on the leg. The femoral neck was then osteotomized appropriate level above the lesser trochanter. A small wedge of bone was then removed from the remaining femoral head. Next, using a corkscrew the femoral head was removed from the acetabulum. On gross visual inspection, the femoral head had complete loss of articular cartilage and multiple periarticular osteophytes. The femoral head was then measured. Attention was then turned to the acetabulum. The acetabulum was exposed and any remaining labrum was excised. Sequential reaming of the acetabulum was performed using fluoroscopic guidance until there was a good bed of bleeding cancellus bone. When the appropriate size was reached, a trial was then placed. The position and fit of the trial was checked with fluoroscopy. The trial was then removed. Then, using fluoroscopic guidance, the final implant was impacted at 20 of anteversion and 40 of abduction, and fully seated in the acetabulum. 2 screws were then placed in the acetabulum. Again fluoroscopy was used to check position of the screws. Next, the liner was then impacted, with a 20 elevated liner located in the anterior superior quadrant. Component locking was confirmed. Attention was then directed to the femur. With the aid of the [place] table, the femur was externally rotated to approximately 130, extended, and adducted under the opposite leg. A side hook was then placed under the proximal femur, and the side hook elevator was used to elevate the proximal femur while releasing the capsule. Retractors were then placed. A capsular release was performed, as well as a release of the conjoined tendon, which afforded excellent visualiz ation of the proximal femur. Next, a box osteotome was used to lateralize the proximal femur. A knock out hand was then used to locate the femoral canal. Sequential broaching was then performed with appropriate size which afforded excellent fixation in the proximal femur. A trial was then placed with appropriate head and neck, and the hip was gently reduced with the aid of the [place] table. Fluoroscopy was then used to check position of the components, as well as to ensure equal leg lengths. The hip was then gently dislocated and the trials were then removed. Final implants were then impacted and the hip was again reduced. Final fluoroscopic x-rays confirmed that the components were in anatomic position, as well as equal leg lengths. The hip was also taken through range of motion, and found to be stable. The hip was then copiously irrigated with antibiotic solution with pulsatile lavage. The hip was then irrigated with Irrisept solution. The soft tissues were then injected with a ropivacaine solution, which consisted of 246.25 mg of ropivacaine, 0.5 mg of epinephrine, 30 mg of Toradol, 80 g of clonidine, and 48.45 mL of sterile water, for a total of 100 mL of fluid injected. A second dose of 1 g of Tranexamic acid was also given intravenously. Any blood collected by [employer] was then returned to the patient at this time. The fascia was then closed with 2-0 strata fix suture. The subcutaneous tissue was closed with 3-0 Vicryl. The subcuticular tissue was closed with 3-0 strata fix suture. The skin was then closed with Exofin skin glue. After the glue and dried, and Optifoam silver impregnated dressing was applied. The patient was then transferred to the recovery room in stable condition. The parking assistant MILI Moreno was required due to the complexity of surgery, and the need for skilled surgical dressing maker for positioning, draping, exposure, retraction, and closure of the wound.
[2020-08-10 08:52] VITALS: TEMP 97.2
[2020-08-10] MEDS ORDERED: diphenhydrAMINE 50 MG/ML 1 ML VIAL IVP ONE (08:55)
[2020-08-10] MEDS ORDERED: MELOXICAM 7.5 MG TAB PO SCH (09:00)
[2020-08-10] MEDS: HYDROmorphone 0.5 MG/0.5 ML SYRINGE IVP PRN ×2 (09:05→09:10)
--- NOTE | 2020-08-10 09:40 | XR ---
EXAMINATION TYPE: XR Hip Limited LT DATE OF EXAM: 08/10/2020 COMPARISON: NONE HISTORY: 25-year-old female status post hip surgery, assess surgical alignment TECHNIQUE: Single AP view FINDINGS: Image shows placement of left hip total arthroplasty. Both acetabular cup and femoral stem components of the prosthesis appear well seated without periprosthetic fracture. Alignment grossly anatomic. So ft tissue air related to recent operation. IMPRESSION: Uncomplicated postoperative appearance left hip total arthroplasty.
[2020-08-10] MEDS ORDERED: MORPHINE SULFATE 4 MG/ML SYRINGE IVP ONE (09:44)
[2020-08-10 11:55] VITALS: RESP 20
[2020-08-10 11:57] VITALS: BP 94/57; PULSE 66
--- NOTE | 2020-08-10 12:52 | XR ---
EXAMINATION TYPE: XR Hip Limited LT, FL guidance operating room DATE OF EXAM: 08/10/2020 COMPARISON: NONE HISTORY: 25-year-old female status post left anterior hip arthroplasty FINDINGS: 2 intraoperative fluoroscopic images during left hip total arthroplasty. FLUOROSCOPY Fluoroscopy time of 17 seconds was used during left hip total arthroplasty. 2 image/s document/s the procedure. IMPRESSION: Intraoperative fluoroscopy as above.
== END 2020-08-10 14:03 | disposition home or self-care (01) ==
LOC: OR 05:51
PROVIDERS: ATTEND Orthopaedic Surgery
DX: M16.12 Unilateral primary osteoarthritis, left hip (principal); M25.752 Osteophyte, left hip; M32.9 Systemic lupus erythematosus, unspecified; M06.9 Rheumatoid arthritis, unspecified; E03.9 Hypothyroidism, unspecified; M06.4 Inflammatory polyarthropathy; D64.9 Anemia, unspecified; Z79.52 Long term (current) use of systemic steroids; Z79.891 Long term (current) use of opiate analgesic; Z79.1 Long term (current) use of non-steroidal anti-inflammatories (NSAID); Z98.890 Other specified postprocedural states; Z90.49 Acquired absence of other specified parts of digestive tract; Z87.891 Personal history of nicotine dependence; Z88.0 Allergy status to penicillin
CPT/HCPCS: 97110; 97161; 81025; 88300; 73501; 27130; C1776; J2250; J0171; J2270; J1200; J1100; J2710; J0690 ×2; J2405; J2001; J3010; J1885; J1170 ×2; J2795; J0330; J2704; J0735; 86850; 86900; 86901